=== PATIENT | male | born 1975 | race Caucasian/White ===

== ENCOUNTER 2019-09-28 08:08 | Emergency (ER) | payer OTHER, SELFPAY ==
[2019-09-28 08:20] VITALS: BP 129/85; PULSE 74; RESP 20; TEMP 37.2; O2SAT 99
--- NOTE | 2019-09-28 08:23 | ED.UPPEXIN ---
HPI - Extremity Injury (Upper) General Chief Complaint: Extremity Injury, Upper Stated Complaint: Left elbow pain Time Seen by Provider: 09/28/19 08:34 Source: patient and RN notes reviewed Mode of arrival: ambulatory Limitations: no limitations History of Present Illness HPI narrative: 44-year-old male presents with concern for left elbow/arm/wrist pain. 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 He denies any direct trauma or injury. Denies any numbness, tingling, swelling, bruising. 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 CARDIOVASCULAR: Denies chest pain, palpitations RESPIRATORY: Denies dyspnea. SKIN: Denies bruising, swelling, redness MUSCULOSKELETAL: Reports left wrist, arm, elbow pain NEUROLOGIC: Denies numbness, weakness All systems reviewed & are unremarkable except as noted in HPI and below PMFSH Comments At time of signature, agree with nursing past medical, surgical, social and family history. There is no relevant family history pertinent to the presenting complaint Exam Narrative: Exam Narrative: GENERAL: Well-appearing, well-nourished, and in no acute distress. HEAD: Normocephalic, atraumatic. EYES: PERRLA, conjunctivae clear NECK: Supple. CHEST: Speaks in full sentences. No respiratory distress. HEART: Regular rate and rhythm. Normal and equal peripheral pulses. EXTREMITIES: Left hand, digits, wrist, elbow, arm has normal sensation, no edema, normal range of motion. 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 Normal sensation with sensitivity to light touch and pain. No open wounds, no skin tenting, no devitalized tissue or atrophy, no trophic changes, no ecchymosis, no obvious deformity, alignment normal, no point tenderness, nearby joints and structures intact. Distal pulses palpable and equal bilaterally, skin warm, dry, pink. Capillary refill less than 3 seconds. SKIN: Warm, dry, no rash. NEURO: Alert and oriented x3. PSYCH: Normal mood and affect Course Course Emergency Course: Patient is aware of diagnosis, understands and agrees to treatment plan. Anticipatory guidance given. Patient agrees to follow-up as directed and is aware of reasons to seek care at the emergency department. Portions of this record may have been created with voice recognition software Vital Signs Vital signs: Vital Signs Temperature 99.0 F 09/28/19 08:20 Pulse Rate 74 09/28/19 08:20 Respiratory Rate 20 09/28/19 08:20 Blood Pressure 129/85 09/28/19 08:20 Pulse Oximetry 99 09/28/19 08:20 Temperature 99.0 F 09/28/19 08:20 Pulse Rate 74 09/28/19 08:20 Respiratory Rate 20 09/28/19 08:20 Blood Pressure 129/85 09/28/19 08:20 Pulse Oximetry 99 09/28/19 08:20 Reviewed. Pt has been instructed to follow up with his primary care provider within the next week regarding his elevated blood pressure today. MDM - Extremity Injury (Upper) MDM Narrative Medical decision making narrative: Patients injury and pain is consistent with musculoskeletal etiology. No signs of neurological or vascular compromise on exam. Compartments and tissues are soft without signs of compartment syndrome. Pain is felt appropriate for further evaluation on an outpatient basis. Critical Care Time Critical Care Time Critical Care Time: No Discharge Plan Discharge Clinical Impression: Epicondylitis, lateral, left Patient Disposition: Home, S
== END 2019-09-28 08:50 | disposition home or self-care (01) ==
PROVIDERS: Emergency Provider Nurse Practitioner
DX: M77.12 Lateral epicondylitis, left elbow (principal)
CPT/HCPCS: 99213; G0463

== ENCOUNTER 2019-10-05 08:07 | Emergency (ER) | payer OTHER, SELFPAY ==
[2019-10-05 08:14] VITALS: BP 145/92; PULSE 73; RESP 20; TEMP 37.1; O2SAT 98
--- NOTE | 2019-10-05 08:32 | ED.UPPEXIN ---
HPI - Extremity Injury (Upper) General Chief Complaint: Extremity Injury, Upper Stated Complaint: left arm pain History of Present Illness HPI narrative: This is a 44 year old that was just seen on the for the same reason he is here today pain in elbow, wrist and arm states that he is done with steroid. Per patient said that he was told to comes back if his symptoms. Patient states that the pain didn't initally go away but then it started on day 3 and 4 subsided and on day 5 it felt good and the following day the pain was not bad then last night it was horrible and a 20 on the pain scale. Related Data Allergies Allergy/AdvReac Type Severity Reaction Status Date / Time No Known Allergies Allergy Unverified 09/16/16 10:36 Review of Systems Review of Systems: Narrative: CONSTITUTIONAL: Denies fever, chills, or sweats. EYES: Denies visual changes, redness, or discharge. ENT: Denies rhinorrhea, congestion, sore throat, or otalgia. CARDIOVASCULAR:Denies chest pain, palpitations, or edema. RESPIRATORY: Denies cough or dyspnea. GASTROINTESTINAL: Denies abdominal pain, nausea, vomiting, or diarrhea. GENITOURINARY: Denies dysuria or hematuria. SKIN:[Denies rash or itching. MUSCULOSKELETAL:Denies back pain, joint pain, or myalgia. left elbow and wrist pain NEUROLOGIC: Denies headache, numbness, or weakness. PSYCHIATRIC:Denies anxiety or depression PMFSH Comments At time as signature, I have reviewed and agree with nursing past medical, social, surgical and family history. Please see nursing chart for further information. There is no relevant family history pertinent to the presenting complaint. Exam Narrative: Exam Narrative: GENERAL:Well-appearing, well-nourished, and in no acute distress. HEAD:Normocephalic, atraumatic. EYES: PERRLA and EOMI. ENT: Nares clear, no rhinorrhea or epistaxis. Mucous membranes moist. NECK: Supple. CHEST: Clear to auscultation. No respiratory distress. HEART: Regular rate and rhythm. No murmur heard. Normal peripheral pulses. ABDOMEN: Soft, nontender, nondistended, normal active bowel sounds. EXTREMITIES: decreased range of motion due to pain. No edema. Patient has elbow splint for tennis elbow on per patient it is helping him some. No swelling good circulation and movement in fingers. Patient is able to rotate his hand without difficulties. SKIN: Warm, dry, no rash. NEURO: No focal deficits. Alert and oriented x3. Course Course Emergency Course: Patient is aware of diagnosis, understands and agrees to treatment plan. Anticipatory guidance given. Patient agrees to follow-up as directed and is aware of reasons to seek care at the emergency department. Vital Signs Vital signs: Vital Signs Temperature 98.8 F 10/05/19 08:14 Pulse Rate 73 10/05/19 08:14 Respiratory Rate 10/05/19 08:14 Blood Pressure 145/92 H 10/05/19 08:14 Pulse Oximetry 98 10/05/19 08:14 Temperature 98.8 F 10/05/19 08:14 Pulse Rate 73 10/05/19 08:14 Respiratory Rate 10/05/19 08:14 Blood Pressure 145/92 H 10/05/19 08:14 Pulse Oximetry 98 10/05/19 08:14 MDM - Extremity Injury (Upper) Differential Diagnosis Differential diagnosis: Likely sprain and strain of wrist, fracture of wrist, finger sprain, fracture of hand and other Discharge Plan Discharge Clinical Impression: Epicondylitis, lateral, left Patient Disposition: Home, Self-Care Condition: Stable Instructions: Antibiotic Form, Tennis Elbow (ED), Tendinitis (ED) Additional Instructions:
== END 2019-10-05 08:53 | disposition home or self-care (01) ==
PROVIDERS: Emergency Provider Nurse Practitioner Family
DX: M77.12 Lateral epicondylitis, left elbow (principal)
CPT/HCPCS: 99213; G0463

== ENCOUNTER 2021-12-04 08:12 | Emergency (ER) | payer OTHER, SELFPAY ==
[2021-12-04 08:17] VITALS: BP 153/101; PULSE 90; RESP 18; TEMP 36.7; O2SAT 96
--- NOTE | 2021-12-04 08:29 | ED.SKABFB ---
HPI - Skin/Abscess/Foreign Bdy General Chief complaint: Skin/Abscess/Foreign Body Stated complaint: lower extemity pain Time Seen by Provider: 12/04/21 08:29 Source: patient Mode of arrival: ambulatory Limitations: no limitations History of Present Illness HPI narrative: 46-year-old male presents with complaint of psoriasis flare for several weeks. Reports he has tried topical steroid creams in the past with no relief. Reports he has been here before for his psoriasis and was given steroid pills that helped. Feels that psoriasis has flared due to work stress. Reports that rash is painful and has never had pain to rash in the past. Has been scratching at lesions. All systems reviewed and negative except as noted above. Related Data Allergies Allergy/AdvReac Type Severity Reaction Status Date / Time No Known Allergies Allergy Verified 12/04/21 08:17 Review of Systems Review of Systems: CONSTITUTIONAL: Denies fever, chills, or sweats. EYES: Denies visual changes, redness, or discharge. ENT: Denies rhinorrhea, congestion, sore throat, or otalgia. CARDIOVASCULAR: Denies chest pain, palpitations, or edema. RESPIRATORY: Denies cough or dyspnea. GASTROINTESTINAL: Denies abdominal pain, nausea, vomiting, or diarrhea. GENITOURINARY: Denies dysuria or hematuria. SKIN: Reports psoriasis rash to bilateral legs. MUSCULOSKELETAL: Denies back pain, joint pain, or myalgia. NEUROLOGIC: Denies headache, numbness, or weakness. PSYCHIATRIC: Denies anxiety or depression. All other systems reviewed are negative, except as documented in HPI. PMFSH Comments At time of signature, agree with nursing past medical, surgical, social and family history. There is no relevant family history pertinent to the presenting complaint. Exam Narrative: GENERAL: This is a well-nourished, well-developed patient, in no apparent distress. HEAD: normocephalic, atraumatic. EYES: PERRL. Sclera clear/white. Vision is grossly intact. EARS: External ears normal NOSE: External nose normal NECK: Neck supple, non-tender without lymphadenopathy, masses or thyromegaly. CARDIOVASCULAR: Regular rate and rhythm without murmurs, gallops, or rubs. RESPIRATORY: Clear to auscultation. Breath sounds equal bilaterally. No wheezes, rales, or rhonchi. SKIN: warm, Dry, intact with good texture and turgor. Multiple erythematous plaques to bilateral lower extremities. 2 simplex there is surrounding erythema, swelling concerning for cellulitis. No drainage. NEURO: awake, alert, and oriented to person, place and time. There were no obvious focal neurologic abnormalities. EXTREMITIES: No joint tenderness, effusion, or edema noted. Course Course Level of Care: Express Care Visit Vital Signs Vital signs: Vital Signs Temperature 36.7 C 12/04/21 08:17 Pulse Rate 90 12/04/21 08:17 Respiratory Rate 18 12/04/21 08:17 Blood Pressure 153/101 H 12/04/21 08:17 Pulse Oximetry 96 12/04/21 08:17 Oxygen Delivery Room Air 12/04/21 08:17 Temperature 36.7 C 12/04/21 08:17 Pulse Rate 90 12/04/21 08:17 Respiratory Rate 18 12/04/21 08:17 Blood Pressure 153/101 H 12/04/21 08:17 Pulse Oximetry 96 12/04/21 08:17 Oxygen Delivery Room Air 12/04/21 08:17 Reviewed MDM - Skin/Abscess/Foreign Bdy MDM Narrative Medical decision making narrative: Patient is aware of diagnosis, understands and agrees to treatment plan. Anticipatory guidance given. Patient agrees to follow-up as directed and is aware of reasons to seek care at the emergency department. Portions of this record may have been created with voice recognition software Recommend follow-up with primary care physician for further evaluation and treatment of psoriasis. Will prescribe antibiotic today due to duration of psoriasis plaques, erythema concerning for cellulitis and pain. Differential Diagnosis Differential diagnosis: Likely abscess of skin or subcutaneous tissue, urticaria, herpes zoster, john paul
== END 2021-12-04 08:51 | disposition home or self-care (01) ==
PROVIDERS: Emergency Provider Nurse Practitioner Family
DX: L40.9 Psoriasis, unspecified (principal); L03.116 Cellulitis of left lower limb; L03.115 Cellulitis of right lower limb
CPT/HCPCS: 99213; G0463

== ENCOUNTER 2022-03-11 08:24 | Emergency (ER) | payer OTHER, SELFPAY ==
[2022-03-11 08:29] VITALS: BP 171/107; PULSE 99; RESP 16; TEMP 37.1; O2SAT 98
--- NOTE | 2022-03-11 08:40 | ED.SKABFB ---
HPI - Skin/Abscess/Foreign Bdy General Chief complaint: Skin/Abscess/Foreign Body Stated complaint: Skin Problem Time Seen by Provider: 03/11/22 08:40 Source: patient, RN notes reviewed and old records reviewed Mode of arrival: ambulatory Limitations: no limitations History of Present Illness HPI narrative: 46-year-old male presents to [facility] care with complaints of increase flare of his psoriasis for the past 2 months. Patient reports that he has large patch on his left lower leg that is extremely irritated and has had some bleeding and swelling of area with itching. Patient states that he has been under a lot of stress related to diagnosis of his mother with cancer and helping to care for her and take her for appointments. Patient states that his rash has spread with new areas now on his abdomen and on his back with itching bad. Patient reports that he doesn't have a PCP doctor with list given to patient. MD complaint: other (psoriasis flare, anxiety) Severity scale (1-10): 3 Treatments prior to arrival: other (Ibuprofen and psoriasis cream OTC) Related Data Allergies Allergy/AdvReac Type Severity Reaction Status Date / Time No Known Allergies Allergy Verified 03/11/22 08:45 Review of Systems Review of Systems: CONSTITUTIONAL: Denies fever, chills, or sweats. EYES: Denies visual changes, redness, or discharge. ENT: Denies rhinorrhea, congestion, sore throat, or otalgia. CARDIOVASCULAR: Denies chest pain, palpitations, or edema. RESPIRATORY: Denies cough or dyspnea. GASTROINTESTINAL: Denies abdominal pain, nausea, vomiting, or diarrhea. GENITOURINARY: Denies dysuria or hematuria. SKIN: Positive for scattered psoriasis rash with itching large red excoriated area to left lower leg with some bleeding areas noted and some swelling. MUSCULOSKELETAL: Denies back pain,some chronic knee pain, or myalgia. NEUROLOGIC: Denies headache, numbness, or weakness. PSYCHIATRIC: Positive for anxiety or depression. All systems reviewed & are unremarkable except as noted in HPI and below PMFSH Past Medical History Medical History (Updated 03/11/22 @ 09:56 by Sanjuana Hillman NP) Chronic knee pain Hypertension Psoriasis Social History Social History (Updated 03/11/22 @ 09:55 by Sanjuana Hillman NP) Smoking status: Current every day smoker Tobacco type: cigarettes Alcohol intake: current Alcohol use details: beer Substance use type: does not use Living arrangements: alone Gender identity (if verbalized by the patient): Male Comments At time of signature, agree with nursing past medical, surgical, social and family history. There is no relevant family history pertinent to the presenting complaint Exam Narrative: GENERAL: Well-appearing, well-nourished, and in no acute distress. HEAD: Normocephalic, atraumatic. EYES: PERRLA and EOMI. ENT: Nares clear, no rhinorrhea or epistaxis. Mucous membranes moist.TM's normal with good light reflex, throat pink with no lesions or swelling NECK: Supple. no lymphadenopathy CHEST: Clear to auscultation. No respiratory distress.SAO2 98% of room air. HEART: Regular rate and rhythm. No murmur heard. Normal peripheral pulses. ABDOMEN: Soft, nontender, nondistended, normal active bowel sounds. EXTREMITIES: Normal range of motion. Small amount of edema to anterior left lower leg with some bleeding noted with large area of plaque psoriasis. SKIN: Warm, dry, scattered psoriasis on lower extremities and reported has spread to waistband and on lower back.. NEURO: No focal deficits. Alert and oriented x3. Course Course Level of Care: Express Care Visit Vital Signs Vital signs: Vital Signs Temperature 37.1 C 03/11/22 08:29 Pulse Rate 99 03/11/22 08:29 Respiratory Rate 16 03/11/22 08:29 Blood Pressure 171/107 H 03/11/22 08:29 Pulse Oximetry 98 03/11/22 08:29 Oxygen Delivery Room Air 03/11/22 08:29 Temperature 37.1 C 03/11/22 08:29 Pulse Rate 99 03/11/22 08:29 Respi
[2022-03-11 09:05] VITALS: BP 176/110
== END 2022-03-11 09:05 | disposition home or self-care (01) ==
PROVIDERS: Emergency Provider Registered Nurse
DX: L03.116 Cellulitis of left lower limb (principal); L40.9 Psoriasis, unspecified; F41.9 Anxiety disorder, unspecified; I10 Essential (primary) hypertension; F17.210 Nicotine dependence, cigarettes, uncomplicated
CPT/HCPCS: 99213; G0463

== ENCOUNTER 2022-04-13 10:19 | Outpatient (CLI) | payer OTHER, SELFPAY ==
--- NOTE | ~2022-04-13 | XR_ITS ---
EXAM: XR knee RT 3V DATE: 04/13/2022 10:38 HISTORY: chronic bilat proximal knee pain,especially at night . COMPARISON: None available. FINDINGS: Normal mineralization. No fracture or dislocation. No lytic or blastic lesion. Mild medial joint space narrowing. Mild tricompartmental osteophytosis. No erosion or periosteal change. Soft ti ssues within normal limits. IMPRESSION: Mild right knee osteoarthritis. Reviewed, dictated and finalized at location K.
--- NOTE | ~2022-04-13 | XR_ITS ---
EXAMINATION: XR knee LT 3V DATE: 04/13/2022 10:38 INDICATION: Chronic bilateral proximally knee pain. TECHNIQUE: 1. Weight bearing anteroposterior, sunrise and flexed lateral views of the left knee were obtained. COMPARISON: None. FINDINGS: Alignment is normal. No fracture. Joint spaces are normal. No joint effusion/layering lipohemarthros is. No erosions or suspicious lytic or blastic bone lesions. Soft tissues are unremarkable. IMPRESSION: 1. . Negative left knee radiographs. Reviewed, dictated and finalized at location B.
[2022-04-13 18:56] LABS: Basophils Absolute Auto 0.1 K/mm3 (0.0-0.1); Basophils Percent Auto 1.3 % (0.2-1.2); Eosinophils Absolute Auto 0.2 K/mm3 (0-0.3); Eosinophils Percent Auto 1.7 % (0-4.4); Hematocrit 53.3 % (42.0-52.0); Hemoglobin 17.9 g/dL (14.0-18.0); Immature Granulocyte Absolute 0.02 K/mm3 (0.00-0.031); Immature Granulocyte Percent A 0.2 % (0-0.5); Lymphocytes Absolute Auto 2.27 K/mm3 (0.9-3.2); Lymphocytes Percent Auto 24.1 % (18.3-44.2); Mean Corpuscular HGB Conc 33.6 g/dl (32-36); Mean Corpuscular Hemoglobin 33.1 pg (26-34); Mean Corpuscular Volume 98.5 fl (80-100); Mean Platelet Volume 9.3 fl (7.4-10.4); Monocytes Absolute Auto 0.8 K/mm3 (0.1-0.6); Monocytes Percent Auto 8.5 % (2.6-8.5); Neutrophils Percent Auto 64.2 % (45.5-73.1); Platelet Count Result 362 k/mm3 (150-375); Red Blood Count 5.41 M/mm3 (4.6-6.20); Red Cell Distribution Width 12.4 % (11.5-14.5); White Blood Count 9.4 K/mm3 (4.5-10.0)
[2022-04-13 19:28] LABS: Alanine Aminotransferase 43 U/L (6-50); Albumin Level 4.8 g/dL (3.5-5.1); Alkaline Phosphatase 91 U/L (38-126); Anion Gap 11 mmol/L (8-16); Aspartate Amino Transferase 57 U/L (17-59); Bilirubin,Total 0.6 mg/dL (0.2-1.3); Blood Urea Nitrogen 7 mg/dL (9-20); Calcium 9.3 mg/dL (8.4-10.2); Carbon Dioxide 26 mmol/L (22-30); Chloride 101 mmol/L (98-107); Cholesterol 321 mg/dL (0-200); Estimated Glomerular Filt Rate > 60; Glucose 82 mg/dL (65-110); HDL Direct 77 mg/dL; Potassium 4.6 mmol/L (3.4-5.0); Sodium 138 mmol/L (137-145); Triglycerides 225 mg/dL (<150)
[2022-04-13 19:37] LABS: LDL Cholesterol Direct 178 mg/dL
== END 2022-04-13 10:20 | disposition home or self-care (01) ==
PROVIDERS: PCP Family Medicine; Visit Provider Family Medicine
DX: Z00.00 Encounter for general adult medical examination without abnormal findings (principal); G89.29 Other chronic pain; M17.11 Unilateral primary osteoarthritis, right knee
CPT/HCPCS: 36415; 73562; 80053; 80061; 85025

== ENCOUNTER 2022-05-19 08:36 | Outpatient (CLI) | payer OTHER, SELFPAY ==
[2022-05-19 18:57] LABS: Cholesterol 183 mg/dL (0-200); HDL Direct 33 mg/dL; Triglycerides 165 mg/dL (<150)
[2022-05-19 19:08] LABS: LDL Cholesterol Direct 104 mg/dL
== END 2022-05-19 08:37 | disposition home or self-care (01) ==
LOC: ANHBWCLAB 08:36
PROVIDERS: PCP Family Medicine; Visit Provider Family Medicine
DX: E78.5 Hyperlipidemia, unspecified (principal)
CPT/HCPCS: 36415; 80061

== ENCOUNTER 2022-05-27 01:11 | Day surgery (SDC) | payer OTHER, SELFPAY ==
[2022-05-19 12:12] VITALS: BMI 26.2
[2022-05-27 06:57] VITALS: BP 113/74; PULSE 97; RESP 16; TEMP 36.4; O2SAT 99; BMI 26.5
[2022-05-27] MEDS: LACTATED RINGERS 1,000 ML 150 ML IV CONT (07:06)
--- NOTE | 2022-05-27 07:25 | P.PNAN_ITS ---
Anes - Initial Pre Proc Eval Procedure: Operation Date: 05/27/22 08:00 Proposed Procedures p Screening Colonoscopy - Nayan Perry MD Date/Time: 05/27/22 07:25 Surgeon: Nayan Perry MD Pre Op Diagnosis: neoplasm screening Patient Data Age: 46 Gender: M Height: 1.78 m Weight: 83.9 kg Last Vital Signs Temp 97.6 F 05/27/22 06:57 Pulse 97 05/27/22 06:57 Resp 16 05/27/22 06:57 BP 113/74 05/27/22 06:57 Pulse Ox 99 05/27/22 06:57 O2 Del Method Room Air 05/27/22 06:57 Allergies Allergy/AdvReac Type Severity Reaction Status Date / Time No Known Allergies Allergy Verified 05/19/22 12:14 Home Medications Medication Instructions Recorded Confirmed Type amlodipine 5 mg tablet 5 mg PO DAILY #90 tabs 04/13/22 05/19/22 Rx clobetasol 0.05 % topical cream 1 applic topical DAILY apply to 04/13/22 05/19/22 Rx areas of psoriasis #60 grams multivitamin 1 tablet PO DAILY 04/13/22 05/19/22 History doxepin 10 mg capsule 10 mg PO QHS #30 caps 05/19/22 05/19/22 Rx Patient hx anesthesia problems: none Family hx anesthesia problems: none Results Review: All pre-operative results and documents have been reviewed as part of the pre- operative evaluation. [facility] Past Medical History Medical History (Updated 05/19/22 @ 09:11 by Yehuda Rivera MD) Chronic knee pain Hypertension Psoriasis Family History Family History (Updated 04/13/22 @ 09:13 by Lakeisha Booker MA) Father Hypertension Cerebrovascular accident Mother Ovarian cancer Social History Social History (Updated 05/19/22 @ 08:50 by Lakeisha Booker MA) Smoking packs per day: 1.5 Smoking cigarettes per day: 30.0 Years smoked: 25 Smoking pack-years: 37.50 Smoking status: Former smoker Tobacco type: cigarettes Alcohol intake: former Alcohol use details: 6 PACK A DAY PRIOR TO QUITIING 05/03/2022 Substance use: never Substance use type: does not use Lack of Transportation: No Lack of Food: Sometimes True Current Housing: I Have Housing Concerned About Future Housing: No Difficulty Paying Gas/Electric Bills: No Difficulty Paying for Meds: No Currently Unemployed: No Education: Trade/Vocational Certificate Difficulty w/ Childcare or Family Care: No Living arrangements: with family Gender identity (if verbalized by the patient): Male Spiritual care concerns: No Agree to blood products: Yes Anes - Eval Final PreProcedure Day of Procedure 05/27/22 07:25 Patient weight: normal Heart: regular rate and rhythm Lungs: clear to auscultation Airway: Mallampati scale class II Neurological: alert and oriented Last oral intake: >/= 8 hours ASA classification: II Emergent: no Anesthetic plan: proceed Anesthesia type and monitoring: general GIVS Results Review: All pre-operative results and documents have been reviewed as part of the pre- operative evaluation. Informed Consent: The patient's anesthetic plan and its attendant risks and benefits were discussed with the patient/family/POA. Questions were solicited and answers provided to the satisfaction of the patient/family/POA.
--- NOTE | 2022-05-27 07:28 | PM.HPGS ---
History of Present Illness History of Present Illness Consent: Risks, benefits, and alternatives have been discussed and questions answered. Patient agrees to proceed with procedure. Chief complaint: neoplasm screening Narrative: Sherman Proctor is a 46 year old male here for first screening colonoscopy Review of Systems Constitutional: Constitutional: Denies headache(s) and Denies weakness Eyes: Eyes: Denies blurry vision ENT: Reports Normal hearing present, Denies headache(s) and Denies neck pain Cardiovascular: Cardiovascular: Denies chest pain and Denies dyspnea Respiratory: Respiratory: Denies dyspnea Gastrointestinal: Gastrointestinal: Reports no additional gastrointestinal complaints Genitourinary: Genitourinary: Denies dysuria Musculoskeletal: Musculoskeletal: Denies neck pain Integumentary/Breasts: Skin/Breast: Denies dry skin Neurologic: Reports Normal hearing present, Denies headache(s) and Denies weakness Psychiatric: Psychiatric: Denies anxiety Endocrine: Endocrine: Denies change in body appearance Hematologic/Lymphatic: Hematologic/Lymphatic: Denies easy bleeding Allergic/Immunologic: Allergic/Immunologic: Denies urticaria PMF Past Medical History Medical History (Updated 05/19/22 @ 09:11 by Yehuda Rivera MD) Chronic knee pain Hypertension Psoriasis Family History Family History (Updated 04/13/22 @ 09:13 by Lakeisha Booker MA) Father Hypertension Cerebrovascular accident Mother Ovarian cancer Social History Social History (Updated 05/19/22 @ 08:50 by Lakeisha Booker MA) Smoking packs per day: 1.5 Smoking cigarettes per day: 30.0 Years smoked: 25 Smoking pack-years: 37.50 Smoking status: Former smoker Tobacco type: cigarettes Alcohol intake: former Alcohol use details: 6 PACK A DAY PRIOR TO QUITIING 05/03/2022 Substance use: never Substance use type: does not use Lack of Transportation: No Lack of Food: Sometimes True Current Housing: I Have Housing Concerned About Future Housing: No Difficulty Paying Gas/Electric Bills: No Difficulty Paying for Meds: No Currently Unemployed: No Education: Trade/Vocational Certificate Difficulty w/ Childcare or Family Care: No Living arrangements: with family Gender identity (if verbalized by the patient): Male Spiritual care concerns: No Agree to blood products: Yes Meds Home Medications and Allergies Home Medications Medication Instructions Recorded Confirmed Type amlodipine 5 mg tablet 5 mg PO DAILY #90 tabs 04/13/22 05/19/22 Rx clobetasol 0.05 % topical cream 1 applic topical DAILY apply to 04/13/22 05/19/22 Rx areas of psoriasis #60 grams multivitamin 1 tablet PO DAILY 04/13/22 05/19/22 History doxepin 10 mg capsule 10 mg PO QHS #30 caps 05/19/22 05/19/22 Rx Allergies Allergy/AdvReac Type Severity Reaction Status Date / Time No Known Allergies Allergy Verified 05/19/22 12:14 Vital Signs Vital Signs - 24 hr 05/27/22 06:57 Temperature 97.6 F Pulse Rate 97 Respiratory Rate 16 Blood Pressure 113/74 Pulse Oximetry 99 Oxygen Delivery Room Air Exam Const: General: comfortable and no acute distress HENMT: Face/Nose/Sinus: Normal nares present Eyes: General: appearance normal, both eyes and all related structures Neck: Neck: no JVD Resp: Auscultation: clear to auscultation bilaterally Cardio: Rate: regular rate Rhythm: regular rhythm GI: Inspection: non-distended GI Palp: Yes Soft to palpation Skin: General skin exam: normal color Neuro: General: gait normal Speech: normal speech Extrem: General: normal to inspection Psych: Mental Status: mental status grossly normal Assessment and Plan Assessment and plan (1) Colon cancer screening: Code(s): Z12.11 - Encounter for screening for malignant neoplasm of colon Status: Acute Assessment and Plan: colonoscopy
[2022-05-27 07:47] VITALS: BP 108/74; PULSE 85; RESP 23; O2SAT 97
[2022-05-27 07:57] VITALS: BP 118/84; PULSE 83; RESP 25; O2SAT 100
[2022-05-27 08:07] VITALS: BP 133/92; PULSE 80; RESP 21; O2SAT 100
== END 2022-05-27 08:17 | disposition home or self-care (01) ==
PROVIDERS: PCP Family Medicine; Visit Provider Internal Medicine Gastroenterology
PROC: 0DJD8ZZ Inspection of Lower Intestinal Tract, Via Natural or Artificial Opening Endoscopic (ICD-10-PCS; CPT 45378; principal; 2022-05-27 08:00)
DX: Z12.11 Encounter for screening for malignant neoplasm of colon (principal); K57.30 Diverticulosis of large intestine without perforation or abscess without bleeding; K63.5 Polyp of colon; K64.8 Other hemorrhoids; I10 Essential (primary) hypertension; L40.9 Psoriasis, unspecified; Z87.891 Personal history of nicotine dependence
CPT/HCPCS: 45385; 88305; J2704; J7120

== ENCOUNTER 2023-02-16 08:17 | Outpatient (CLI) | payer OTHER, SELFPAY ==
[2023-02-16 19:04] LABS: Basophils Absolute Auto 0.1 K/mm3 (0.0-0.1); Basophils Percent Auto 0.8 % (0.2-1.2); Eosinophils Absolute Auto 0.3 K/mm3 (0-0.3); Eosinophils Percent Auto 2.6 % (0-4.4); Hematocrit 54.6 % (42.0-52.0); Hemoglobin 18.1 g/dL (14.0-18.0); Immature Granulocyte Absolute 0.04 K/mm3 (0.00-0.031); Immature Granulocyte Percent A 0.4 % (0-0.5); Lymphocytes Absolute Auto 2.95 K/mm3 (0.9-3.2); Lymphocytes Percent Auto 26.6 % (18.3-44.2); Mean Corpuscular HGB Conc 33.2 g/dl (32-36); Mean Corpuscular Hemoglobin 32.3 pg (26-34); Mean Corpuscular Volume 97.3 fl (80-100); Mean Platelet Volume 9.7 fl (7.4-10.4); Monocytes Percent Auto 9.1 % (2.6-8.5); Neutrophils Absolute Auto 6.7 K/mm3 (1.3-6.7); Neutrophils Percent Auto 60.5 % (45.5-73.1); Platelet Count Result 407 k/mm3 (150-375); Red Blood Count 5.61 M/mm3 (4.6-6.20); Red Cell Distribution Width 12.8 % (11.5-14.5); White Blood Count 11.1 K/mm3 (4.5-10.0)
[2023-02-16 20:31] LABS: Alanine Aminotransferase 37 U/L (6-50); Albumin Level 4.5 g/dL (3.5-5.1); Alkaline Phosphatase 77 U/L (38-126); Anion Gap 10 mmol/L (8-16); Aspartate Amino Transferase 84 U/L (17-59); Bilirubin,Total 0.8 mg/dL (0.2-1.3); Blood Urea Nitrogen 12 mg/dL (9-20); Calcium 9.5 mg/dL (8.4-10.2); Carbon Dioxide 30 mmol/L (22-30); Chloride 99 mmol/L (98-107); Cholesterol 285 mg/dL (0-200); Estimated Glomerular Filt Rate > 60; Glucose 94 mg/dL (65-110); HDL Direct 62 mg/dL; Potassium 4.3 mmol/L (3.4-5.0); Sodium 139 mmol/L (137-145); Triglycerides 195 mg/dL (<150)
[2023-02-16 20:42] LABS: LDL Cholesterol Direct 174 mg/dL
== END 2023-02-16 08:18 | disposition home or self-care (01) ==
LOC: ANHBWCLAB 08:19
PROVIDERS: PCP Nurse Practitioner Adult Health; Visit Provider Nurse Practitioner Adult Health
DX: I10 Essential (primary) hypertension (principal)
CPT/HCPCS: 36415; 80053; 80061; 85025

== ENCOUNTER 2024-10-12 08:07 | Outpatient (CLI) | payer OTHER, SELFPAY ==
--- NOTE | ~2024-10-12 | XR_ITS ---
AP and lateral views of the left hip Clinical history: Pain Findings: No acute fracture or dislocation is seen. Osseous alignment is anatomic. Left hip joint is intact. Soft tissues are unremarkable. Impression: No significant abnormality is seen. Reviewed, dictated and finalized at location M. Impression: No significant abnormality is seen.
--- NOTE | ~2024-10-12 | XR_ITS ---
Lumbosacral Spine: AP and lateral views Clinical History: Pain Findings: The normal lordotic curve is maintained. The vertebral bodies and posterior elements are i ntact. The intervertebral disc spaces are preserved. The sacroiliac joints are normally outlined. Impression: No significant abnormality. Reviewed, dictated and finalized at [facility]. Impression: No significant abnormality.
--- NOTE | ~2024-10-12 | XR_ITS ---
Clinical Indication: Smoking history PA and lateral views of the chest: Comparison: None Findings: The lungs are clear, without evidence of focal consolidation or pleural effusion. Cardiome diastinal silhouette is within normal limits. Bones and soft tissues are unremarkable. Impression: Normal chest. Reviewed, dictated and finalized at location . Impression: Normal chest.
--- OUTSIDE RECORDS SUMMARY | 2024-10-12 08:11 | XMS_ITS | Referral Summary ---
Author Organization [facility] Address [address] [place] [address] Care Team Providers Care Middle School Music Teacher Name Role Phone Unknown, Notinfile Primary Care Provider Unavail able Samira Kruger Unavailable [phone] Allergies No known active allergies Medications amLODIPine (NORVASC) 5 mg tablet Take 1 tablet (5 mg total) by mouth daily 02/16/2023 Active aspirin 81 mg enteric coated tablet Take 1 tablet (81 mg total) by mouth daily 03/21/2023 Active HYDROcodone-shukri taminophen (NORCO) 5-325 mg per tabletIndicatio ns:Pain Take 1 tablet by mouth every 4 (four) hours as needed for pain Do not taken empty stomach, do not mixed with alcohol or other narcotic pain medications, do not drive after taking 30 tablet 04/23/2023 Active doxepin (SINEquan) 10 mg capsule 05/16/2023 Active Active Problems Problem Noted Date Diagnosed Date Closed displaced fracture of lateral malleolus of left fibula 04/06/2023 Assessment & Plan (04/06/2023 1:53 PM CDT): Patient has a minimally displaced fracture of the fibula with a likely deltoid ligament disruption and disruption of the syndesmosis with widening of sigmoid notch. I would recommend open duction internal fixation to help stabilize the ankle and prevent a higher risks of posttraumatic arthritis developing. There is risks of infection, incisional numbness, blood loss blood clots, neurovascular compromise, loss of fixation malunion nonunion, medical and anesthetic risks including is willing to proceed. Ankle syndesmosis disruption, left, initial enco unter 04/06/2023 Assessment & Plan (04/06/2023 1:54 PM CDT): Patient has widening of the sigmoid notch and talar shifting. At the time of his open duction internal fixation of the fibula would recommend stabilization be performed for the syndesmosis. If a tight rope is used to can rupture or displace and screws can be associated with breakage but usually function relatively well. Closed fracture of lateral malleolus of left ank le 04/06/2023 Sprain of tibiofibular ligament of left ankle Social History Tobacco Use Types Packs/Day Years Used Date Smoking Tobacco: Every Day Cigarettes Tobacco Cessation:Ready to Q uit: Not Asked; Counseling Given: Not Answered Alcohol Use Standard Drinks/Week Comments Yes 0 (1 standard drink = 0.6 oz pur e alcohol) AUDIT-C Answer Date Recorded Q1: How often do you have a drink containing alcohol? 4 or more times a week 04/07/2023 Q2: How many drinks containi ng alcohol do you have on a typical day when you are drinking? 3 or 4 Frequency of Binge Drinking Not on file 03/15 Personal Safety Answer Date Recorded Have you ever been in or are you currently in a harmful physical or emotional relationship or is someone making you feel afraid or unsafe? 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 Not on file Last Filed Vital Signs Vital Sign Reading Time Taken Comments Blood Pressure 148/93 04/07/2023 11:00 AM CDT Pulse 89 04/07/2023 11:10 AM CDT Temperature 36.8 C (98.3 F) 04/07/2023 6:25 AM CDT Respiratory Rate 18 04/07/2023 11:10 AM CDT Oxygen Saturation 91% 04/07/2023 11:10 AM CDT Inhaled Oxygen Concentration - - Weight 90.3 kg (199 lb) 06/10/2023 1:37 PM BEHAVIORAL SCHOOL COUNSELORS Height 177.8 cm (5' 10 ) 06/10/2023 1:37 PM BEHAVIORAL SCHOOL COUNSELORS Body Mass Index 28.55 06/10/2023 1:37 PM BEHAVIORAL SCHOOL COUNSELORS Plan of Treatment Not on file Medical Devices Implanted Type Area Ivf Embryologist Device Identifier Shelf Expiration Date Model / Serial / Lot Arthrex Inc 104mm 6 Hole Lock Modular Low Profile Fibula Left Distal Plate [id number] - [id number] Implanted:Qty: 1 on 04/07/2023 by Nabil Nick MD at [facility] Left: Ankle [employer] AR-8943BL-0 6 / / [employer] Screw Kreulock Compression Ss 2.7x16mm [id number] - [id number] Implanted:Qty: 2 on 04/07/2023 by Nabil Nick MD at [facility] Left: Ankle [employer] AR-8827CL-1 6 / / [employer] Low Profile Screws 3.5mm 16mm Modular Solid Hexalobe Self Tap Ar-8835-16 - [id number] Implanted:Qty: 1 on 04/07/2023 by Nabil Nick MD at [facility] Left: Ankle [employer] AR-8835-16 / / [employer] Screw Kreulock Compression Ss 3.5x12mm [id number] - [id number] Implanted:Qty: 1 on 04/07/2023 by Nabil Nick MD at [facility] Left: Ankle [employer] AR-8835CL-1 2 / / [employer] System Fxatn Tightrope Xp Ss Syndesmosis Repair Ar-8925ss - [id number] Implanted:Qty: 1 on 04/07/2023 by Nabil Nick MD at [facility] Left: Ankle [employer] 12/12/2027 AR-8925SS / / [id number] [employer] Low Profile Screws 3.5mm 12mm Modular Solid Hexalobe Self Tap Ar-8835-12 - [id number] Implanted:Qty: 1 on 04/07/2023 by Nabil Nick MD at [facility] Left: Ankle [employer] AR-8835-12 / / Insurance [facility] Care Teams Middle School Music Teacher Relationship Specialty Start Date End Date Unknown, Notinfile PCP - General 04/04/23 [place] [address] [address] Physician Senior Tax Analyst Orthopedic Surgery 04/07/23
--- OUTSIDE RECORDS SUMMARY | 2024-10-12 08:11 | XMS_ITS | Clinical Summary ---
Author Organization [facility] Address [address] [place] [address] Care Team Providers Care Heating Mechanic Name Role Phone Unknown, Notinfile Primary Care Provider Unavail able Samira Kruger Unavailable [phone] Allergies No known active allergies Medications amLODIPine [...] Sprain of tibiofibular ligament of left ankle Surgical History Surgery Date Site/Laterality Comments ORIF ANKLE FRACTURE 04/07/2023 Left Medical History Medical History Date Comments Hypertension Hyperlipidemia Asthma as a child GERD (gastroesophageal reflux disease) Family History Medical History Relation Name Comments Cancer Mother Relation Name Status Comments Father Alive Mother Alive Social History Tobacco Use Types Packs/Day Years [...] on file Legal Sex Male 7:34 PM INTERNAL CONSULTANT Gender Identity Not on file Sexual Orientation Not on file 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 Not on file Obstetrics History Last Filed Vital Signs Vital Sign Reading Time Taken Comments Blood Pressure 148/93 04/07/2023 11:00 AM CDT Pulse 89 04/07/2023 11:10 AM CDT Temperature 36.8 C (98.3 F) 04/07/2023 6:25 AM CDT Respiratory Rate 18 04/07/2023 11:10 AM CDT Oxygen Saturation 91% 04/07/2023 11:10 AM CDT Inhaled Oxygen Concentration - - Weight 90.3 kg (199 lb) 06/10/2023 1:37 PM INTERNAL CONSULTANT Height 177.8 cm (5' 10 ) 06/10/2023 1:37 PM INTERNAL CONSULTANT Body Mass Index 28.55 06/10/2023 1:37 PM INTERNAL CONSULTANT Plan of Treatment Health Maintenance Due Date Last Done Comments Colon Cancer Screening-Colonoscopy 1974 Depression Screening 1974 Hepatitis C Screening 1974 Prostate Cancer Screening-PSA 1974 Hepatitis B Screening 1992 Regular Well Visit/Exam 18-64 1992 Pneumococcal vaccine <65 (1 of 2 - PCV) 1993 Influenza Vaccine (#1) 2024 Zoster Vaccine (1 of 2) 2024 DTaP/Tdap/Td Vaccine (2 - Td or Tdap) 04/13/2032 Medical Devices Implanted Type Area C Iron Worker Device Identifier Shelf Expiration Date Model / Serial / Lot Ar[employer]rex Inc 104mm 6 Hole Lock Modular Low Profile Fibula Left Distal Plate [id number] - [id number] Implanted:Qty: 1 on 04/07/2023 by Nabil Nick MD at [facility] Left: Ankle [employer] AR-8943BL-0 6 / / [employer] Screw Kreulock Compression Ss 2.7x16mm [id number] - [id number] Implanted:Qty: 2 on 04/07/2023 by Nabil Nick MD at [facility] Left: Ankle [employer] AR-8827CL-1 6 / / [employer] Low Profile Screws 3.5mm 16mm Modular Solid Hexalobe Self Tap Ar-8835-16 - [id number] Implanted:Qty: 1 on 04/07/2023 by Nabil Nick MD at [facility] Left: Ankle [employer] AR-8835-16 / / [employer] Screw Kreulock Compression Ss 3.5x12mm [id number] - [id number] Implanted:Qty: 1 on 04/07/2023 by Nabil Nick MD at [facility] Left: Ankle [employer] AR-8835CL-1 2 / / [employer] System Fxatn Tightrope Xp Ss Syndesmosis Repair Ar-8925ss - [id number] Implanted:Qty: 1 on 04/07/2023 by Nabil Nick MD at [facility] Left: Ankle [employer] 12/12/2027 AR-8925SS / / [id number] [employer] Low Profile Screws 3.5mm 12mm Modular Solid Hexalobe Self Tap Ar-8835-12 - [id number] Implanted:Qty: 1 on 04/07/2023 by Nabil Nick MD at [facility] Left: Ankle [employer] AR-8835-12 / / Insurance [facility] Care Teams Heating Mechanic Relationship Specialty Start Date End Date Unknown, Notinfile PCP - General 04/04/23 [place] [address] [address] Physician Radio Time Sales Supervisor Orthopedic Surgery 04/07/23
[2024-10-12 19:25] LABS: Basophils Absolute Auto 0.1 K/mm3 (0.0-0.1); Basophils Percent Auto 0.9 % (0.2-1.2); Eosinophils Absolute Auto 0.4 K/mm3 (0-0.3); Eosinophils Percent Auto 3.8 % (0-4.4); Hematocrit 56.3 % (42.0-52.0); Immature Granulocyte Absolute 0.03 K/mm3 (0.00-0.031); Immature Granulocyte Percent A 0.3 % (0-0.5); Lymphocytes Absolute Auto 2.58 K/mm3 (0.9-3.2); Lymphocytes Percent Auto 26.5 % (18.3-44.2); Mean Corpuscular Volume 103.1 fl (80-100); Mean Platelet Volume 9.9 fl (7.4-10.4); Monocytes Absolute Auto 0.8 K/mm3 (0.1-0.6); Neutrophils Absolute Auto 5.9 K/mm3 (1.3-6.7); Neutrophils Percent Auto 60.5 % (45.5-73.1); Platelet Count Result 381 k/mm3 (150-375); Red Blood Count 5.46 M/mm3 (4.6-6.20); Red Cell Distribution Width 13.2 % (11.5-14.5); White Blood Count 9.8 K/mm3 (4.5-10.0)
[2024-10-12 20:23] LABS: Alanine Aminotransferase 31 U/L (6-50); Albumin Level 4.5 g/dL (3.5-5.1); Alkaline Phosphatase 92 U/L (38-126); Anion Gap 8 mmol/L (4-12); Aspartate Amino Transferase 49 U/L (17-59); Bilirubin,Total 0.4 mg/dL (0.2-1.3); Blood Urea Nitrogen 16 mg/dL (9-20); Calcium 9.5 mg/dL (8.4-10.2); Carbon Dioxide 30 mmol/L (22-30); Chloride 103 mmol/L (98-107); Cholesterol 310 mg/dL (0-200); Estimated Glomerular Filt Rate > 60; Glucose 99 mg/dL (65-110); HDL Direct 57 mg/dL; Potassium 4.9 mmol/L (3.4-5.0); Sodium 141 mmol/L (137-145); Triglycerides 237 mg/dL (<150)
[2024-10-12 20:35] LABS: LDL Cholesterol Direct 190 mg/dL
[2024-10-12 20:53] LABS: Prostate Specific Antigen 1.8 ng/mL (< OR = 4.0)
== END 2024-10-12 08:08 | disposition home or self-care (01) ==
PROVIDERS: PCP Nurse Practitioner Adult Health; Visit Provider Nurse Practitioner Adult Health
DX: E78.5 Hyperlipidemia, unspecified (principal); F17.200 Nicotine dependence, unspecified, uncomplicated; M25.562 Pain in left knee; R20.2 Paresthesia of skin; Z12.5 Encounter for screening for malignant neoplasm of prostate; M25.552 Pain in left hip
CPT/HCPCS: 36415; 71046; 72100; 73502; 73562; 80053; 80061; 82607; 84153; 84443; 85025; G0103

== ENCOUNTER 2024-12-06 08:49 | Outpatient (CLI) | payer OTHER, SELFPAY ==
--- NOTE | 2024-12-06 11:00 | NEURO_ITS ---
Impression: # Complains of left lower extremity paresthesia ? # Normal motor/sensory Nerve Conduction Study ? # Normal needle/EMG exam no neurogenic changes ? # Clinical correlation recommended Nerve Conduction Studies Anti Sensory Summary Table ?Stim Site NR Peak (ms) P-T Amp (?V) Site1 Site2 Delta-P (ms) Dist (cm) Bala (m/s) Left Sup Fibular Anti Sensory (Ant Lat Mall) 14 cm ? 2.6 8.0 14 cm Ant Lat Mall 2.6 16.0 62 Left Sural Anti Sensory (Lat Mall) Calf ? 2.8 8.1 Calf Lat Mall 2.8 16.0 57 Motor Summary Table ?Stim Site NR Onset (ms) O-P Amp (mV) Site1 Site2 Delta-0 (ms) Dist (cm) Bala (m/s) Left Peroneal Motor (Vastus Med) Ankle ? 4.1 3.5 Popit Ankle 8.9 42.0 47 Popit ? 13.0 2.8 Left Tibial Motor (Abd Edgar Brev) Ankle ? 4.2 8.4 Knee Ankle 8.4 43.0 51 Knee ? 12.6 5.9 F Wave Studies ?NR F-Lat (ms) L-R F-Lat (ms) Left Peroneal (Mrkrs) (EDB) ? 51.06 Left Tibial (Mrkrs) (Abd Hallucis) ? 50.79 EMG ?Side Muscle Nerve Root Ins Act Fibs Amp Dur Recrt Comment Left AntTibialis Dp Br Fibular L4-5 Nml Nml Nml Nml Nml Left Gastroc Tibial S1-2 Nml Nml Nml Nml Nml Left Fibularis Long Sup Br Fibular L5-S1 Nml Nml Nml Nml Nml Left Flex Dig Long Tibial L5-S2 Nml Nml Nml Nml Nml Left Ext Dig Brev Dp Br Fibular L5, S1 Nml Nml Nml Nml Nml Left QuadratusFem QuadFemoris L4-5, S1 Nml Nml Nml Nml Nml
== END 2024-12-06 08:50 | disposition home or self-care (01) ==
LOC: ANHNEURO 08:52
PROVIDERS: PCP Nurse Practitioner Adult Health; Visit Provider Nurse Practitioner Adult Health
DX: R20.2 Paresthesia of skin (principal)
CPT/HCPCS: 95886; 95908

== ENCOUNTER 2024-12-12 08:47 | Outpatient (CLI) | payer OTHER, SELFPAY ==
--- NOTE | ~2024-12-12 | US_ITS ---
EXAMINATION: US arterial duplex LE DATE: 12/12/2024 10:06 INDICATION: Left thigh pain TECHNIQUE: Grayscale ultrasound images without and with compression and Doppler ultrasound images of the left lower extremity veins were obtained. COMPARISON: None. FINDINGS: Peak systolic velocity (cm/sec) ; waveform Left lower extremity External iliac artery: 134; triphasic Common femoral artery: 94; triphasic Profunda femoral artery: 47; triphasic Superficial femoral artery: 95; triphasic Popliteal artery: 54; triphasic Anterior tibial artery: 60; triphasic Posterior tibial artery: 58; triphasic Peroneal artery: 29; triphasic Dorsalis pedis: 49; triphasic IMPRESSION: No peripheral vascular disease, as detailed above. Reviewed, dictated and finalized at location A.
--- OUTSIDE RECORDS SUMMARY | 2024-12-12 08:50 | XMS_ITS | Clinical Summary ---
Author Organization [facility] Address [address] [place] [address] Care Team Providers Care Front Maker Name Role Phone Unknown, Notinfile Primary Care Provider Unavail able Samira Kruger Unavailable [phone] Allergies No known active allergies Medications amLODIPine [...] on file Legal Sex Male 7:34 PM EXECUTIVE SOUS CHEF Gender Identity Not on file Sexual Orientation [...] 90.3 kg (199 lb) 06/10/2023 1:37 PM EXECUTIVE SOUS CHEF Height 177.8 cm (5' 10) 06/10/2023 1:37 PM EXECUTIVE SOUS CHEF Body Mass Index 28.55 06/10/2023 1:37 PM EXECUTIVE SOUS CHEF Plan of Treatment Health Maintenance Due Date Last Done Comments Colon Cancer Screening-Colonoscopy 1974 Depression Screening 1974 Hepatitis C Screening 1974 Prostate Cancer Screening-PSA 1974 Hepatitis B Screening 1992 Regular Well Visit/Exam 18-64 1992 Pneumococcal vaccine <65 (1 of 2 - PCV) 1993 Zoster Vaccine (1 of 2) 2024 Influenza Vaccine (Season Ended) 2025 DTaP/Tdap/Td Vaccine (2 - Td or Tdap) 04/13/2032 Medical Devices Implanted Type Area Deputy Editor In Chief Device Identifier Shelf Expiration Date Model / Serial / Lot Ar[employer] Inc 104mm 6 Hole Lock Modular Low Profile Fibula Left Distal Plate [id number] - [id number] Implanted:Qty: 1 on 04/07/2023 by Nabil Nick MD at [facility] Left: Ankle [employer] AR-8943BL-0 6 / / [employer] Screw Kreulock Compression Ss 2.7x16mm [id number] - [id number] Implanted:Qty: 2 on 04/07/2023 by Nabil Nick MD at [facility] Left: Ankle [employer] AR-8827CL-1 6 / / [employer] Inc Low Profile Screws 3.5mm 16mm Modular Solid Hexalobe Self Tap Ar-8835-16 - [id number] Implanted:Qty: 1 on 04/07/2023 by Nabil Nick MD at [facility] Left: Ankle [employer] AR-8835-16 / / [employer] Screw Kreulock Compression Ss 3.5x12mm [id number] - [id number] Implanted:Qty: 1 on 04/07/2023 by Nabil Nick MD at [facility] Left: Ankle [employer] AR-8835CL-1 2 / / [employer] System Fxatn Tightrope Xp Ss Syndesmosis Repair Ar-8925ss - [id number] Implanted:Qty: 1 on 04/07/2023 by Nabil Nick MD at [facility] Left: Ankle [employer] 12/12/2027 AR-8925SS / / [id number] Ar[employer] Inc Low Profile Screws 3.5mm 12mm Modular Solid Hexalobe Self Tap Ar-8835-12 - [id number] Implanted:Qty: 1 on 04/07/2023 by Nabil Nick MD at [facility] Left: Ankle [employer] AR-8835-12 / / Insurance [facility] Care Teams Front Maker Relationship Specialty Start Date End Date Unknown, Notinfile PCP - General 04/04/23 [place] [address] [address] Physician Client Relation Specialist Orthopedic Surgery 04/07/23
--- OUTSIDE RECORDS SUMMARY | 2024-12-12 08:50 | XMS_ITS | Referral Summary ---
Author Organization [facility] Address [address] [place] [address] Care Team Providers Care Jd Edwards Developer Name Role Phone Unknown, Notinfile Primary Care Provider Unavail able Samira Kruger Unavailable [phone] Allergies No known active allergies Medications amLODIPine [...] on file Legal Sex Male 7:34 PM PAINT LINE SUPERVISOR Gender Identity Not on file Sexual Orientation [...] 90.3 kg (199 lb) 06/10/2023 1:37 PM PAINT LINE SUPERVISOR Height 177.8 cm (5' 10) 06/10/2023 1:37 PM PAINT LINE SUPERVISOR Body Mass Index 28.55 06/10/2023 1:37 PM PAINT LINE SUPERVISOR Plan of Treatment Not on file Medical Devices Implanted Type Area Bellperson Device Identifier Shelf Expiration Date Model / Serial / Lot Ar[employer] 104mm 6 Hole Lock Modular Low Profile Fibula Left Distal Plate [id number] - [id number] Implanted:Qty: 1 on 04/07/2023 by Nabil Nick MD at [facility] Left: Ankle [employer] AR-8943BL-0 6 / / [employer] Screw Kreulock Compression Ss 2.7x16mm [id number] - [id number] Implanted:Qty: 2 on 04/07/2023 by Nabil Nick MD at [facility] Left: Ankle [employer] AR-8827CL-1 6 / / Ar[employer] Low Profile Screws 3.5mm 16mm Modular Solid Hexalobe Self Tap Ar-8835-16 - [id number] Implanted:Qty: 1 on 04/07/2023 by Nabil Nick MD at [facility] Left: Ankle [employer] AR-8835-16 / / [employer] Screw Kreulock Compression Ss 3.5x12mm [id number] - [id number] Implanted:Qty: 1 on 04/07/2023 by Nabil Nick MD at [facility] Left: Ankle [employer] AR-8835CL-1 2 / / [employer] System Fxatn Tightrope Xp Ss Syndesmosis Repair Ar-8925ss - [id number] Implanted:Qty: 1 on 04/07/2023 by Nabil Nick MD at [facility] Left: Ankle [employer] 12/12/2027 AR-8925SS / / [id number] Ar[employer] Inc Low Profile Screws 3.5mm 12mm Modular Solid Hexalobe Self Tap Ar-8835-12 - [id number] Implanted:Qty: 1 on 04/07/2023 by Nabil Nick MD at [facility] Left: Ankle [employer] AR-8835-12 / / Insurance [facility] Care Teams Jd Edwards Developer Relationship Specialty Start Date End Date Unknown, Notinfile PCP - General 04/04/23 [place] [address] [address] Physician Motorcyles Final Inspector Orthopedic Surgery 04/07/23
== END 2024-12-12 08:48 | disposition home or self-care (01) ==
PROVIDERS: PCP Nurse Practitioner Adult Health; Visit Provider Nurse Practitioner Adult Health
DX: M79.652 Pain in left thigh (principal)
CPT/HCPCS: 93926

== ENCOUNTER 2024-12-12 10:38 | Outpatient (CLI) | payer OTHER, SELFPAY ==
--- OUTSIDE RECORDS SUMMARY | 2024-12-12 10:49 | XMS_ITS | Referral Summary ---
Author Organization [facility] Address [address] [place] [address] Care Team Providers Care Sheep Clipper Name Role Phone Unknown, Notinfile Primary Care Provider Unavail able Samiar Kruger Unavailable [phone] Allergies No known active allergies Medications amLODIPine [...] on file Legal Sex Male 7:34 PM ASSISTANT BROKER Gender Identity Not on file Sexual Orientation [...] 90.3 kg (199 lb) 06/10/2023 1:37 PM ASSISTANT BROKER Height 177.8 cm (5' 10) 06/10/2023 1:37 PM ASSISTANT BROKER Body Mass Index 28.55 06/10/2023 1:37 PM ASSISTANT BROKER Plan of Treatment Not on file Medical Devices Implanted Type Area Chemist Proteins Device Identifier Shelf Expiration Date Model / Serial / Lot [employer] 104mm 6 Hole Lock Modular Low Profile Fibula Left Distal Plate [id number] - [id number] Implanted:Qty: 1 on 04/07/2023 by Nabil Nick MD at [facility] Left: Ankle [employer] AR-8943BL-0 6 / / [employer] Screw Kreulock Compression Ss 2.7x16mm [id number] - [id number] Implanted:Qty: 2 on 04/07/2023 by Nabil Nick MD at [facility] Left: Ankle [employer] AR-8827CL-1 6 / / [employer] Low Profile Screws 3.5mm 16mm Modular Solid Hexalobe Self Tap Ar-8835-16 - [id number] Implanted:Qty: 1 on 04/07/2023 by Nabil Nick MD at [facility] Left: Ankle [employer] AR-8835-16 / / [employer] Screw Kreulock Compression Ss 3.5x12mm [id number] - [id number] Implanted:Qty: 1 on 04/07/2023 by Nabil Nick MD at [facility] Left: Ankle [employer] AR-8835CL-1 2 / / [employer] System Fxatn Tightrope Xp Ss Syndesmosis Repair Ar-8925ss - [id number] Implanted:Qty: 1 on 04/07/2023 by Nabil Nick MD at [facility] Left: Ankle [employer] 12/12/2027 AR-8925SS / / [id number] Ar[employer] Inc Low Profile Screws 3.5mm 12mm Modular Solid Hexalobe Self Tap Ar-8835-12 - [id number] Implanted:Qty: 1 on 04/07/2023 by Nabil Nick MD at [facility] Left: Ankle [employer] AR-8835-12 / / Insurance [facility] Care Teams Sheep Clipper Relationship Specialty Start Date End Date Unknown, Notinfile PCP - General 04/04/23 [place] [address] [address] Physician Multimedia Instructional Designer Orthopedic Surgery 04/07/23
--- OUTSIDE RECORDS SUMMARY | 2024-12-12 10:49 | XMS_ITS | Clinical Summary ---
Author Organization [facility] Address [address] [place] [address] Care Team Providers Care X Ray Nurse Name Role Phone Unknown, Notinfile Primary Care Provider Unavail able Samira Kruger Unavailable [phone] Allergies No known active allergies Medications amLODIPine [...] on file Legal Sex Male 7:34 PM BI DEVELOPER Gender Identity Not on file Sexual Orientation [...] 90.3 kg (199 lb) 06/10/2023 1:37 PM BI DEVELOPER Height 177.8 cm (5' 10) 06/10/2023 1:37 PM BI DEVELOPER Body Mass Index 28.55 06/10/2023 1:37 PM BI DEVELOPER Plan of Treatment Health Maintenance Due Date [...] Tdap) 04/13/2032 Medical Devices Implanted Type Area Front End Manager Device Identifier Shelf Expiration Date Model / Serial / Lot Ar[employer]rex Inc 104mm 6 Hole Lock Modular Low Profile Fibula Left Distal Plate [id number] - [id number] Implanted:Qty: 1 on 04/07/2023 by Nabil Nick MD at [facility] Left: Ankle [employer] AR-8943BL-0 6 / / [employer] Inc Screw Kreulock Compression Ss 2.7x16mm [id number] - [id number] Implanted:Qty: 2 on 04/07/2023 by Nabil Nick MD at [facility] Left: Ankle [employer] AR-8827CL-1 6 / / Ar[employer] Inc Low Profile Screws 3.5mm 16mm Modular Solid Hexalobe Self Tap Ar-8835-16 - [id number] Implanted:Qty: 1 on 04/07/2023 by Nabil Nick MD at [facility] Left: Ankle [employer] AR-8835-16 / / [employer] Screw Kreulock Compression Ss 3.5x12mm [id number]-40 - [id number] Implanted:Qty: 1 on 04/07/2023 by Nabil Nick MD at [facility] Left: Ankle [employer] AR-8835CL-1 2 / / [employer] System Fxatn Tightrope Xp Ss Syndesmosis Repair Ar-8925ss - [id number] Implanted:Qty: 1 on 04/07/2023 by Nabil Nick MD at [facility] Left: Ankle [employer] 12/12/2027 AR-8925SS / / [id number] Ar[employer] Inc Low Profile Screws 3.5mm 12mm Modular Solid Hexalobe Self Tap Ar-8835-12 - [id number] Implanted:Qty: 1 on 04/07/2023 by Nabil Nick MD at [facility] Left: Ankle [employer] AR-8835-12 / / Insurance [facility] Care Teams X Ray Nurse Relationship Specialty Start Date End Date Unknown, Notinfile PCP - General 04/04/23 [place] [address] [address] Physician Senior Corporate Strategy Manager Orthopedic Surgery 04/07/23
[2024-12-12 19:20] LABS: Alanine Aminotransferase 28 U/L (6-50); Albumin Level 4.4 g/dL (3.5-5.1); Alkaline Phosphatase 73 U/L (38-126); Anion Gap 9 mmol/L (4-12); Aspartate Amino Transferase 47 U/L (17-59); Bilirubin,Total 0.5 mg/dL (0.2-1.3); Blood Urea Nitrogen 8 mg/dL (9-20); Calcium 10.2 mg/dL (8.4-10.2); Carbon Dioxide 24 mmol/L (22-30); Chloride 104 mmol/L (98-107); Cholesterol 303 mg/dL (0-200); Estimated Glomerular Filt Rate > 60; Glucose 85 mg/dL (65-110); HDL Direct 46 mg/dL; Potassium 4.3 mmol/L (3.4-5.0); Sodium 137 mmol/L (137-145); Total Protein 8.2 g/dL (6.3-8.2); Triglycerides 307 mg/dL (<150)
== END 2024-12-12 10:39 | disposition home or self-care (01) ==
LOC: ANHBWCLAB 10:39
PROVIDERS: PCP Nurse Practitioner Adult Health; Visit Provider Nurse Practitioner Adult Health
DX: E78.5 Hyperlipidemia, unspecified (principal)
CPT/HCPCS: 36415; 80053; 80061

== ENCOUNTER 2025-02-02 06:43 | Outpatient (CLI) | payer OTHER, SELFPAY ==
--- NOTE | ~2025-02-02 | MR_ITS ---
MRI of the lumbar spine Clinical History: Paresthesia scan Technique: Axial T2-weighted images, and sagittal T1-weighted, T2-weighted, and T2 fat-sat images were acquired. Findings: There is no fracture or subluxation of the lumbar spine. Vertebral bodies maintain normal height and alignment. No bone marrow signal abnormality seen. No significant disc bulge or herniation seen at any lumbar level. There are minimal facet joint degenerative changes. No spinal canal stenosis or neural foraminal narrowing seen in the lumbar spine. Paravertebral soft tissues are unremarkable. Impression: Minimal facet arthropathy. Reviewed, dictated and finalized at location M. Impression: Minimal facet arthropathy.
== END 2025-02-02 06:44 | disposition home or self-care (01) ==
LOC: ANHIMG 06:44
PROVIDERS: PCP Nurse Practitioner Adult Health; Visit Provider Nurse Practitioner Adult Health
DX: M47.896 Other spondylosis, lumbar region (principal)
CPT/HCPCS: 72148